=== PATIENT | male | born 1970 | race Caucasian/White ===

== ENCOUNTER 2018-07-05 11:50 | Emergency (ER) | payer BC ==
[2018-07-05 12:37] VITALS: BP 137/97; PULSE 88; RESP 18; TEMP 98.1
--- NOTE | 2018-07-05 12:49 | ED ---
General Adult HPI - General Chief complaint: Extremity Injury, Upper Stated complaint: Lt hand injury Time Seen by Provider: 07/05/18 12:39 Source: patient, RN notes reviewed Mode of arrival: ambulatory Limitations: no limitations - History of Present Illness Initial comments: Patient is a 47-year-old male presenting to the emergency room today with a chief complaint of an injury to the left hand that occurred 2 days ago. Patient does admit that he went to step out of his truck slipped on some ice and fell hitting his hand on the step of the truck. Patient is states that he' s had increased pain over the last 2 days to this area over the second metacarpal area. Patient does admit that it's worse with certain movements. Patient states he started elevate and ice the area. He denies any other complaints or symptoms. Patient denies any recent fever, chills, shortness of breath, chest pain, back pain, abdominal pain, nausea or vomiting,headaches or visual changes, or any other complaints. - Related Data Previous Rx's Medication Instructions Recorded Ibuprofen [Motrin] 800 mg PO Q6HR #30 tab 07/05/18 predniSONE 40 mg PO DAILY 5 Days tab 07/05/18 Allergies Allergy/AdvReac Type Severity Reaction Status Date / Time grapefruit Allergy Anaphylaxis Verified 07/05/18 12:38 Penicillins Allergy Anaphylaxis Verified 07/05/18 12:38 Review of Systems ROS Statement: Those systems with pertinent positive or pertinent negative responses have been documented in the HPI. ROS Other: All systems not noted in ROS Statement are negative. Past Medical History Past Medical History: No Reported History History of Any Multi-Drug Resistant Organisms: None Reported Past Surgical History: Tonsillectomy Additional Past Surgical History / Comment(s): groin surgery Past Psychological History: No Psychological Hx Reported Smoking Status: Current every day smoker Past Alcohol Use History: Occasional Past Drug Use History: None Reported General Exam - General Exam Comments Initial Comments: General: The patient is awake and alert, in no distress, and does not appear acutely ill. Neck: The neck is supple, there is no tenderness or JVD. Musculoskeletal: Patient does have some mild swelling to the left hand. Patient is locally tender over the second metacarpal. Sensation is intact. Pulses 2+. Neurological: A&O x 3. CN II-XII intact, There are no obvious motor or sensory deficits. Coordination appears grossly intact. Speech is normal. Skin: Skin is warm and dry and no rashes or lesions are noted. Psychiatric: Normal mood and affect. 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 Sclerosis of the proximal pole of the scaphoid could reflect an early AVM. 2. A PV shows possible widening at the scapholunate interval. Reflect concurrent scaphoid ligament tear. 3. Some joint space narrowing suggested at the radiocarpal joint with a geode at the radial styloid process. X-ray showing no acute fracture dislocation. Patient does have tenderness over the second MCP joint area. Patient advised to watch for any increase or worsening symptoms but is advised follow-up with orthopedics. Will be started on anti-inflammatories and steroids. Disposition Clinical Impression: Hand injury Disposition: HOME SELF-CARE Condition: Good Instructions (If sedation given, give patient instructions): Hand Sprain (ED) Additional Instructions: Please use medication as discussed. Please follow-up with family doctor in the next 2 days of symptoms have not improved. Please return to emergency room if the symptoms increase or worsen or for any other concerns. Prescriptions: Ibuprofen [Motrin] 800 mg PO Q6HR #30 tab predniSONE 40 mg PO DAILY 5 Days tab Is patient prescribed a controlled substance at d/c from ED?: No Referrals: None,Stated [Primary Care Provider] - 1-2 days Thomas Gandhi MD [STAFF PHYSICIAN] - 1-2 days Time of Disposition: 14:06
--- NOTE | 2018-07-05 13:24 | XR ---
EXAMINATION TYPE: XR hand complete LT DATE OF EXAM: 07/05/2018 COMPARISON: NONE HISTORY: 47-year-old male with pain after fall TECHNIQUE: 3 views FINDINGS: There is an old ununited transverse fracture through the waist of the scaphoid. There are also cysts may be some widening at the scapholunate interval. Sclerotic appearance to the proximal pole of the s caphoid without jamil fragmentation. There is a subchondral geode within the radial styloid process a nd possible joint space narrowing in the radial carpal joint. Some degenerative spurring in the trisc aphe joint. Mild soft tissue swelling. No acute fracture, subluxation, or dislocation. IMPRESSION: 1. 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 Sclerosis of the proximal pole of the scaphoid could reflect early AVN. There is no jamil bony fragmentation. 2. The AP view shows possible widening at the scapholunate interval. This could reflect a concurrent scapholunate ligament tear. 3. Some joint space narrowing suggested at the radiocarpal joint with a geode at the radial styloid p rocess. Possible SNAC wrist.
== END 2018-07-05 14:15 | disposition home or self-care (01) ==
LOC: EC 11:50
DX: S62.102A Fracture of unspecified carpal bone, left wrist, initial encounter for closed fracture (principal); F17.200 Nicotine dependence, unspecified, uncomplicated; Z91.018 Allergy to other foods; Z88.0 Allergy status to penicillin; W00.0XXA Fall on same level due to ice and snow, initial encounter
CPT/HCPCS: 99283